=== PATIENT | female | born 1985 | race African-American/Black ===

== ENCOUNTER 2025-02-23 09:06 | Outpatient (CLI) | payer BC, OTHER ==
[2025-02-23] MEDS ORDERED: Iopamidol 370 76% 100 ML VIAL ONE (14:47)
== END 2025-02-23 09:07 | disposition home or self-care (01) ==
LOC: NM 09:06
PROVIDERS: ATTEND Internal Medicine Hematology & Oncology
DX: C50.811 Malignant neoplasm of overlapping sites of right female breast (principal); K86.89 Other specified diseases of pancreas; N64.89 Other specified disorders of breast; R59.0 Localized enlarged lymph nodes; K59.00 Constipation, unspecified; D25.9 Leiomyoma of uterus, unspecified; N83.202 Unspecified ovarian cyst, left side
CPT/HCPCS: 71260; 74177; 78306; A9503; Q9967

== ENCOUNTER 2025-03-06 07:53 | Day surgery (SDC) | payer BC ==
[2025-03-06 08:14] LABS: #Basophils Less than 0.03 10x3/uL (0.0-0.2); #Eosinophils 0.40 10x3/uL (0.0-0.7); #Monocytes 0.62 10x3/uL (0.11-0.59); #Neutrophils 5.41 10x3/uL (1.40-6.50); %Basophils 0.2 % (0.0-1.0); %Eosinophils 4.7 % (0.0-10.0); %Lymphocytes 24.1 % (21.0-51.0); %Monocytes 7.3 % (0.0-10.0); %Neutrophils 63.3 % (42.0-75.0); Hematocrit 39.0 % (36.0-47.0); Hemoglobin 12.8 g/dL (12.0-16.0); Mean Corpuscular Hemoglobin 24.8 pg (27.0-31.0); Mean Corpuscular Volume 75.6 fL (78.0-98.0); Platelet Count 258 10x3/uL (130-400); Red Blood Cell (RBC) Count 5.16 mill/uL (4.20-5.40); White Blood Cell (WBC) Count 8.54 10x3/uL (4.8-10.8)
[2025-03-06 08:22] LABS: BHCG - Serum Negative (NEGATIVE); Pregs Control Background? CLEAR/WHITE (CLR/WHITE); Pregs Control Bar Appear? YES (CONTROL BAR)
[2025-03-06 08:32] LABS: INR-International Normal Ratio 1.1; Prothrombin Time 14.2 sec (12.0-14.7)
[2025-03-06 08:33] LABS: PTT 41.4 sec (22.9-36.1)
[2025-03-06 09:15] VITALS: BP 121/90
[2025-03-06] MEDS ORDERED: CEFAZOLIN 1 GM VIAL ONE (09:36)
[2025-03-06] MEDS ORDERED: CEFAZOLIN 2 GM VIAL ONE (09:36)
[2025-03-06] MEDS ORDERED: Lidocaine 1% w/Epinephrine 1:100K 20 ML VIAL ONE (09:37)
[2025-03-06] MEDS ORDERED: Sodium Bicarbonate 2.5 MEQ/5 ML SDV ONE (09:41)
[2025-03-07] MEDS ORDERED: FLU (Fluarix Triv) 25-26 (6MOS UP)/PF 45 MCG/0.5 ML Syringe IM ONE (10:30)
== END 2025-03-06 13:10 | disposition home or self-care (01) ==
LOC: SPEC 07:53
PROVIDERS: ATTEND Internal Medicine Hematology & Oncology
PROC: 0JH60XZ Insertion of Tunneled Vascular Access Device into Chest Subcutaneous Tissue and Fascia, Open Approach (ICD-10-PCS; principal; 2025-03-06)
DX: C50.811 Malignant neoplasm of overlapping sites of right female breast (principal); Z91.013 Allergy to seafood
CPT/HCPCS: 36000; 36415; 36561; 71045; 76937; 77001; 84703; 85025; 85610; 85730; 99152; 99153; C1769; C1788; J0690; J1642; J2250; J3010; J7030